=== PATIENT | female | born 1960 | race Caucasian/White ===

== ENCOUNTER 2025-01-07 05:14 | Inpatient (IN) | payer MEDICAID ==
[2025-01-06 14:04] VITALS: BMI 58.1
[2025-01-07] MEDS ORDERED: Bupivacaine 0.25% HCL 30 ML VIAL ONE (10:39)
[2025-01-07] MEDS ORDERED: fentaNYL PF 100 MCG/2 ML SYRINGE ONE (11:11)
[2025-01-07] MEDS ORDERED: PROPOFOL 20 ML ONE (11:11)
[2025-01-07] MEDS ORDERED: Lidocaine 1% PF 5 ML VIAL ONE (11:11)
[2025-01-07] MEDS ORDERED: Rocuronium Bromide 10 MG/ML (10ML VIAL) ONE (11:11)
[2025-01-07] MEDS ORDERED: Scopolamine 1 mg/72 hour Patch ONE (11:48)
[2025-01-07] MEDS ORDERED: Enoxaparin 40 MG (0.4 mL) SYRINGE ONE (11:48)
[2025-01-07] MEDS ORDERED: PHENYLEPHRINE-NS 100 MCG/ML 10 ML SYRINGE ONE (13:01)
[2025-01-07] MEDS ORDERED: Ondansetron PF 4 MG/2 ML Vial ONE ×2 (13:38→14:11)
[2025-01-07] MEDS ORDERED: SUGAMMADEX SODIUM 200 MG/2 ML VIAL ONE (13:38)
[2025-01-07] MEDS ORDERED: Glucagon 1 MG/ML KIT IM PRN (16:39)
[2025-01-07] MEDS ORDERED: hydrALAZINE 20 MG/ML VIAL SLOW IVP PRN (16:39)
[2025-01-07] MEDS ORDERED: oxyCODONE 5 MG TAB PO PRN (16:39)
[2025-01-07] MEDS ORDERED: diphenhydrAMINE 50 MG/ML VIAL IVP PRN (16:39)
[2025-01-07] MEDS ORDERED: Dextrose 50% Abboject 50 ML SYRINGE SLOW IVP PRN (16:39)
[2025-01-07] MEDS ORDERED: Ondansetron PF 4 MG/2 ML Vial IVP PRN (16:39)
[2025-01-07] MEDS ORDERED: ALPRAZolam 0.5 MG TAB PO PRN (16:41)
[2025-01-07] MEDS: Gabapentin 400 MG CAP PO SCH (17:43)
[2025-01-07] MEDS: Ketorolac Tromethamine 30 MG (1 mL) VIAL IVP SCH (17:44)
[2025-01-07] MEDS: D5 1/2 NS w/20 mEq KCL 1,000 ML IV SCH (17:45)
[2025-01-07] MEDS: Cyclobenzaprine 10 MG TAB PO SCH (21:14)
[2025-01-08] MEDS: Enoxaparin 40 MG (0.4 mL) SYRINGE SC SCH (09:11)
[2025-01-08] MEDS: Pantoprazole 40 MG VIAL IVP SCH (09:13)
[2025-01-08 11:41] VITALS: BP 112/68; TEMP 98.3
== END 2025-01-08 16:39 | disposition home or self-care (01) | DRG 621 ==
LOC: EDSEX 10:36 → SURG A 10:36 → SURG B 17:29
PROVIDERS: ADMIT Surgery; ATTEND Surgery
PROC: 0DB64Z3 Excision of Stomach, Percutaneous Endoscopic Approach, Vertical (ICD-10-PCS; principal; 2025-01-07)
PROC: 8E0W4CZ Robotic Assisted Procedure of Trunk Region, Percutaneous Endoscopic Approach (ICD-10-PCS; 2025-01-07)
DX: E66.01 Morbid (severe) obesity due to excess calories (principal); E78.2 Mixed hyperlipidemia; G47.33 Obstructive sleep apnea (adult) (pediatric); I10 Essential (primary) hypertension; F41.9 Anxiety disorder, unspecified; F32.A Depression, unspecified; F90.9 Attention-deficit hyperactivity disorder, unspecified type; Z68.43 Body mass index [BMI] 50.0-59.9, adult; Z88.8 Allergy status to other drugs, medicaments and biological substances; Z86.16 Personal history of COVID-19; Z98.890 Other specified postprocedural states; Z87.891 Personal history of nicotine dependence; Z90.710 Acquired absence of both cervix and uterus; Z79.899 Other long term (current) drug therapy; Z79.51 Long term (current) use of inhaled steroids
CPT/HCPCS: 36416; 88307; 94640; 94760; J0169; J0665; J0694; J1650; J1885; J2405; J2470; J2704; J3010; J3480; J3490; J7620; S2900